=== PATIENT | female | born 1985 | race Caucasian/White ===

== ENCOUNTER → 2018-09-11 09:52 | Outpatient (CLI) | payer OTHER, MEDICAID, SELFPAY ==
--- NOTE | 2018-09-11 09:55 | DI.RAD.S_ITS ---
PROCEDURE: XR CERVICAL SPINE 2V OR 3V INDICATIONS: neck pain TECHNIQUE: 3 view(s) of the cervical spine were acquired. COMPARISON: None. FINDINGS: Bones: No fractures or dislocations to the C7 level. The lateral masses of C1 appear intact on the odontoid view. No suspicious bony lesions. Soft tissues: No prevertebral soft tissue swelling. Surgical clips project over the right lung apex/right first rib. IMPRESSION: No acute osseous abnormality of the imaged cervical spine. Dictated by: Chato Toney M.D. on 09/11/2018 at 10:20 Approved by: Chato Toney M.D. on 09/11/2018 at 10:23
== END ==
PROVIDERS: Family Provider Family Medicine; PCP Family Medicine; Visit Provider Physician Assistant
DX: M54.2 Cervicalgia (principal); G56.21 Lesion of ulnar nerve, right upper limb
CPT/HCPCS: 72040